=== PATIENT | female | born 1955 | race Caucasian/White ===

== ENCOUNTER 2016-11-28 09:48 | Day surgery (SDC) | payer OTHER ==
[~2016-11-28] VITALS: Ht 172.7 cm; Wt 80.0 kg
[2016-11-28] MEDS ORDERED: HUMALOG (11:09)
[2016-11-28] MEDS ORDERED: ASPIRIN (11:09)
[2016-11-28] MEDS ORDERED: VITAMIN D2 (11:09)
[2016-11-28] MEDS ORDERED: OMEPRAZOLE (11:09)
[2016-11-28 11:11] VITALS: Ht 172.7 cm; Wt 80.0 kg
[2016-11-28 11:26] VITALS: BP 196/94; PULSE 75; RESP 18
[2016-11-28] MEDS ORDERED: PROPOFOL 40 ML ONE (11:44)
[2016-11-28] MEDS ORDERED: LIDOCAINE 2% (SDV) 5 ML INJ ONE (11:44)
[2016-11-28 12:32] VITALS: BP 181/86; PULSE 80; RESP 12
--- NOTE | 2016-11-28 16:08 | GILP ---
DATE OF PROCEDURE: INDICATION: A 61-year-old female undergoing this procedure for dysphagia. She was also told to hav e a colonoscopy, but patient declined it. INFORMED CONSENT: The risk of the procedure, related and unrelated complications, anesthetic risks, alternatives discussed. Informed consent was obtained. DESCRIPTION OF PROCEDURE: Patient was brought to the GI lab, sedated by Dr. Parker. After obtaining sedation, scope was passed with much ease into the esophagus. She had a tortuous esophagus in the p roximal part. At GE junction, there was some resistance was offered to the passage of the scope. Ma naged to pass with much ease into the stomach. Had a chronic gastritis. Duodenum, first and second part, including ampulla, appeared normal. Retroversion no growth was seen. sign was negativ e. Multiple biopsies obtained to rule out H. pylori infection. Then, a 12- to 15-mm balloon was pa ssed through transendoscopically, initially dilated up to 12 mm for half a minute. Balloon was defl ated, no blood was seen. Then, dilated up to 13.5 mm for another half a minute, and at that point, definitely the mucosa appeared stretched out, and there was slight bleeding seen, so decided not to pursue it further. Scope was then removed with good patient tolerance. IMPRESSION: Esophageal stricture at gastroesophageal junction dilated up to 13.5 mm. PLAN: Review histopathology, continue PPIs, and patient may need another dilatation after 1 month u p to 18 mm. Dictated By: AMNA MARTIN/LISA Conf#: [id number] DID#: [id number]
== END 2016-11-28 15:37 | disposition home or self-care (01) ==
LOC: GIL 09:48
PROVIDERS: ATTEND Internal Medicine Gastroenterology
DX: K22.2 Esophageal obstruction (principal); K29.50 Unspecified chronic gastritis without bleeding; B96.89 Other specified bacterial agents as the cause of diseases classified elsewhere; E11.9 Type 2 diabetes mellitus without complications; Z79.4 Long term (current) use of insulin; Z88.1 Allergy status to other antibiotic agents; Z90.49 Acquired absence of other specified parts of digestive tract; Z90.710 Acquired absence of both cervix and uterus; Z98.51 Tubal ligation status
CPT/HCPCS: 43239; 43249; 82962; 88305; 88312; Z7610

== ENCOUNTER 2017-02-26 06:26 | Day surgery (SDC) | payer OTHER ==
[~2017-02-26] VITALS: Ht 172.7 cm; Wt 81.6 kg
[~2017-02-26 06:26] MED LIST: ASPIRIN; HUMALOG; OMEPRAZOLE; VITAMIN D2
[2017-02-26] MEDS ORDERED: LIDOCAINE 2% (SDV) 5 ML INJ ONE (07:36)
[2017-02-26] MEDS ORDERED: PROPOFOL 20 ML ONE (07:36)
[2017-02-26] MEDS ORDERED: MIDAZOLAM 1 MG/ML 2 ML INJ ONE (07:36)
[2017-02-26 07:38] VITALS: Ht 172.7 cm; Wt 81.6 kg
[2017-02-26 09:03] VITALS: BP 187/75; RESP 20
--- NOTE | 2017-02-27 08:18 | GILP ---
DATE OF PROCEDURE: 02/26/2017 PROCEDURE PERFORMED: 1. Esophagogastroduodenoscopy with biopsy. 2. Esophagogastroduodenoscopy with dilatation of the esophagus. SURGEON: Amna Chandra MD INDICATION: A 61-year-old female undergoing this procedure for dysphagia secondary to esophageal st ricture. The risk of the procedure, related and unrelated complications, anesthetic risks, and alte rnatives discussed and informed consent was obtained. DESCRIPTION OF PROCEDURE: The patient was brought to the GI lab, sedated by Dr. Reyes. After optima l sedation, scope was passed with much ease into the esophagus which was grossly within normal limit s. Z-line, was a stricture, probably diameter of 11 mm. Scope was advanced further down into the s tomach which revealed chronic gastritis. Duodenum first and second part was within normal limits. Ampulla was more prominent than the normal. Multiple biopsies obtained from stomach to rule out H. pylori infection. Retroversion done, no growth was seen. Scope was straightened out. Dilators of grading fashion from 12 to 15 appropriately positioned, initially dilated up to 12 mm for 1 minute. The balloon was deflated. No blood was seen. Then, it was dilated up to 13.5 mm for half a minute . A very little amount of blood was seen, so it was decided to stop the dilatation further. Scope was then removed with good patient tolerance. IMPRESSION: 1. Esophageal stricture, probably 11 mm in diameter, successfully dilated up to 13.5 without any ad verse events. 2. Chronic gastritis, H. pylori infection needs to be ruled out. 3. Prominent ampulla. The patient needs ultrasound of the abdomen to rule out bile duct stone or e ndoscopic ultrasound. Dictated By: AMNA MARTIN/NTS Conf#: [id number] DID#: [id number] CC: AMNA CHANDRA MD; ;*EndCC*
== END 2017-02-26 18:00 | disposition home or self-care (01) ==
LOC: GIL 06:26
PROVIDERS: ATTEND Internal Medicine Gastroenterology
DX: K29.50 Unspecified chronic gastritis without bleeding (principal); K22.2 Esophageal obstruction; E11.9 Type 2 diabetes mellitus without complications
CPT/HCPCS: 43239; 43249; 82962; 88305; 88312; J2250; Z7610

== ENCOUNTER 2017-04-13 00:14 | Emergency (ER) | payer OTHER ==
[~2017-04-13] VITALS: Ht 172.7 cm; Wt 80.9 kg
[~2017-04-13 00:14] MED LIST changes: -ASPIRIN
[2017-04-13 00:17] VITALS: Ht 172.7 cm; Wt 80.9 kg
--- NOTE | 2017-04-13 00:26 | ERA ---
ER Documentation Chief Complaint Date/Time DATE: 04/13/17 TIME: 00:25 Chief Complaint c/o high bp HPI The patient is a 61-year-old female, presenting to the ER because of elevated blood pressure intermittently for 1 week. She was noncompliant with her medications until 2 months ago where she restarted on lisinopril 2.5 mg daily. Her blood pressure was not controlled, therefore she has been taking 5 mg daily for the last 7 days. Her blood pressure remained high. She complains of minimal chest discomfort today that began about 3 PM and frontal headache that began about 10 PM today. She denies any chest pain now, denies neck pain, chest pain with exertion of vomiting or diaphoresis, denies abdominal pain, vomiting, dysuria, diarrhea. She does not smoke nor drink Past medical history: Diabetes mellitus, hypertension, chronic gastritis, history of esophageal stricture Past surgical history: Hysterectomy, appendectomy, cholecystectomy, eye surgery , EGD recently in February 26, 2017 for esophageal dilatation ROS All systems reviewed and are negative except as per history of present illness. Medications Home Meds Active Scripts Amlodipine Besylate* (Norvasc*) 5 Mg Tablet, 5 MG PO DAILY, #14 TAB Prov:REYNALDO SMITH MD 04/13/17 Reported Medications Glucosamine Hcl (Glucosamine Hcl) 1,500 Mg Tablet, 1500 MG PO, TAB 04/13/17 Insulin NPH Human Isophane (Humulin N) 100 Unit/1 Ml Vial, 0 SQ AC BREAKFAST DINNER, VIAL 14 UNITS QAM and 12 UNIT QPM 04/13/17 Omeprazole* (Omeprazole*) 20 Mg Capsule.dr, 20 MG PO DAILY, #30 CAP 04/13/17 Insulin Lispro (Humalog) 100 Unit/1 Ml Cartridge, 0 SQ 04/13/17 Discontinued Reported Medications [Vitamin D2] No Conflict Check 11/28/16 [Omeprazole] No Conflict Check 11/28/16 [Humalog] No Conflict Check 11/28/16 Allergies Allergies: Coded Allergies: cephalexin (Unverified Allergy, Severe, HIVES, 04/13/17) tobramycin (Unverified Allergy, Unknown, 04/13/17) PMhx/Soc History of Surgery: Yes (PARTIAL HYSTERECTOMY, TUBAL LIGATION, APPENDECTOMY, CHOLECYSECTOMY, EYE SX) Anesthesia Reaction: No Hx Neurological Disorder: No Hx Respiratory Disorders: No Hx Cardiac Disorders: No Hx Psychiatric Problems: No Hx Miscellaneous Medical Probl: No Hx Alcohol Use: No Hx Substance Use: No Hx Tobacco Use: No Physical Exam Vitals Vital Signs Date Time Temp Pulse Resp B/P Pulse Ox O2 Delivery O2 Flow Rate FiO2 04/13/17 01:54 80 20 164/81 100 Room Air 04/13/17 00:28 86 20 182/145 100 Room Air 04/13/17 00:17 97.8 93 20 242/110 96 Physical Exam Const: No acute distress. Head: Atraumatic. Eyes: Normal Conjunctiva. ENT: Normal External Ears, Nose and Mouth. Neck: Full range of motion. No meningismus. Resp: Clear to auscultation bilaterally. Cardio: Regular rate and rhythm. Abd: Soft, non distended, normal bowel sounds, non tender. Skin: No petechiae or rashes. Back: No midline or flank tenderness. Ext: No cyanosis, or edema. Neur: Awake and alert. No focal deficit Psych: Normal Mood and Affect. Result Diagram: 04/13/17 0046 04/13/17 0046 Results 24 hrs Laboratory Tests Test 04/13/17 00:46 White Blood Count 9.010^3/ul Red Blood Count 4.1710^6/ul Hemoglobin 12.1g/dl Hematocrit 35.9% Mean Corpuscular Volume 86.1fl Mean Corpuscular Hemoglobin 29.0pg Mean Corpuscular Hemoglobin Concent 33.7g/dl Red Cell Distribution Width 13.9% Platelet Count 53068^3/UL Mean Platelet Volume 11.7fl Neutrophils % 52.1% Lymphocytes % 37.5% Monocytes % 8.3% Eosinophils % 1.6% Basophils % 0.3% Nucleated Red Blood Cells % 0.0/100WBC Neutrophils # 4.710^3/ul Lymphocytes # 3.410^3/ul Monocytes # 0.710^3/ul Eosinophils # 0.110^3/ul Basophils # 0.010^3/ul Nucleated Red Blood Cells # 0.010^3/ul Prothrombin Time 12.2Sec Prothrombin Time Ratio 1.0 INR International Normalized Ratio 0.91 Activated Partial Thromboplast Time 29.2Sec Sodium Level 140mmol/L Potassium Level 4.1mmol/L Chloride Level 99mmol/L Carbon Dioxide Level 30mmol/L Anion Gap 15 Blood Urea Nitrogen 22mg/dl Creatinine 0.95mg/dl Glucose Level 305mg/dl Calcium Level 9.5mg/dl Troponin I < 0.012ng/ml Current Medications Medications (Trade) Dose Ordered Sig/Gokul Route PRN Reason Start Time Stop Time Status Last Admin Dose Admin Labetalol HCl (Labetalol) 20 mg ONCE ONCE IV 04/13/17 01:00 04/13/17 01:01 DC 04/13/17 00:45 Acetaminophen (Tylenol Tab) 650 mg ONCE ONCE PO 04/13/17 02:00 04/13/17 02:01 DC 04/13/17 02:04 Procedures/MDM [place] [id number] Radiology Main Line: [phone] DIAGNOSTIC IMAGING REPORT Patient: MAURICIO JAMES : 1955 Age: 61 Sex: F MR #: [id number] DOS: 04/13/17 0035 Ordering MD: REYNALDO SMITH MD Location: E/R Room/Bed: PROCEDURE: CHEST - 1 VIEW CLINICAL INDICATION: 61-year-old female with chest pain and headaches. TECHNIQUE: A single frontal AP upright portable view of the chest was performed. The images were reviewed on a PACS workstation. COMPARISON: None. FINDINGS: The cardiomediastinal silhouette has a normal appearance. There is no evidence for an infiltrate. There is no evidence for congestive heart failure. There is no evidence for pneumothorax. The osseous structures are intact. IMPRESSION: No evidence for active cardiopulmonary disease. .Suman Lawler MD, Date Time Electronically viewed and signed by .Suman Lawler MD, on 04/13/2017 01:26 .M/ CC: REYNALDO SMITH MD [place] [id number] Radiology Main Line: [phone] DIAGNOSTIC IMAGING REPORT Patient: MAURICIO JAMES : 1955 Age: 61 Sex: F MR #: [id number] DOS: 04/13/17 0035 Ordering MD: REYNALDO SMITH MD Location: E/R Room/Bed: PROCEDURE: CT BRAIN WITHOUT CONTRAST CLINICAL INDICATION: 61-year-old female with headaches and hypertension. TECHNIQUE: The study was performed utilizing [employer] 64-slice CT scanner. Direct axial sections were obtained from the foramen magnum to the vertex without the use of intravenous contrast material. Sagittal and coronal reformations were obtained. One or more of the following dose reduction techniques were utilized: automated exposure control, adjustment of the mA and/ or kV according to patient's size or use of iterative reconstruction technique. The images were viewed on a PACS workstation. CTD/vol = 45.0 mGy; Total Exam DLP = 720.2 mGy-cm. COMPARISON: None. FINDINGS: There is mild prominence of the sulci and cisternal spaces consistent with diffuse volume loss. Otherwise, the ventricles have a normal shape and position. There is no evidence for mass effect or midline shift. There are no intracranial areas of abnormal attenuation. There is no evidence for acute intra or extra-axial blood. The bony calvarium is intact. The visualized paranasal sinuses are without abnormal soft tissue. There appears to be an ovoid focus of gas density within the anterior chamber of the globe superior to the lens measuring 8 x 6 x 8 mm. IMPRESSION: 1. Mild diffuse volume loss. 2. Ovoid gas density superior to the left lens region which may be due to implant or surgery. Clinical correlation is necessary. .Suman Lawler MD, Date Time Electronically viewed and signed by .Suman Lawler MD, MD on 04/13/2017 01:25 .M/ CC: REYNALDO SMITH MD EKG: Read by emergency physician Rate/Rhythm: Normal Sinus Rhythm 84 beats/min QRS, ST, T-waves: No ST elevation, no T inversion Impression: Normal EKG MEDICAL MAKING DECISION: The patient is a 61-year-old female, presenting with acute excellent hypertension. She was treated with labetalol 20 mg IV and Tylenol 650 mg p.o. for her headache with good blood pressure response. The differential diagnoses considered include but are not limited to subarachnoid hemorrhage, occult trauma, CVA, meningitis, encephalitis, hypertension, tension, migraine, cluster, narcotic withdrawal, cervical spine disease. Departure Diagnosis: Primary Impression: Accelerated hypertension Condition: Good Comments I discussed the findings with the patient. I advised the patient to follow-up with the primary physician in about 1-2 days, sooner if needed and return if any concern. She was discharged with Norvasc 5 mg daily REYNALDO SMITH MD Apr 13, 2017 00:26
[2017-04-13] MEDS ORDERED: LABETALOL HCL 20MG INJ IV ONE (01:00)
[2017-04-13 01:11] LABS: ADD SCAN DIFF NO
[2017-04-13 01:13] LABS: BASOPHILS % 0.3 % (0.0-2.0); EOSINOPHILS # 0.1 10^3/ul (0.0-0.5); EOSINOPHILS % 1.6 % (0.0-7.0); HEMATOCRIT 35.9 % (37.0-47.0); HEMOGLOBIN 12.1 g/dl (12.0-16.0); LYMPHOCYTES # 3.4 10^3/ul (0.8-2.9); LYMPHOCYTES % 37.5 % (15.0-51.0); MEAN CORPUSCULAR HGB CONC 33.7 g/dl (32.0-37.0); MEAN CORPUSCULAR VOLUME 86.1 fl (82.0-101.0); MEAN PLATELET VOLUME 11.7 fl (7.4-10.4); MONOCYTE # 0.7 10^3/ul (0.3-0.9); MONOCYTES % 8.3 % (0.0-11.0); NEUTROPHIL # 4.7 10^3/ul (1.6-7.5); NEUTROPHILS % 52.1 % (39.0-77.0); PLATELET COUNT 218 10^3/UL (140-415); RED BLOOD COUNT 4.17 10^6/ul (4.20-5.40); RED CELL DISTRIBUTION WIDTH 13.9 % (11.5-14.5)
--- NOTE | 2017-04-13 01:26 | RADRPT ---
PROCEDURE: CT BRAIN WITHOUT CONTRAST CLINICAL INDICATION: 61-year-old female with headaches and hypertension. TECHNIQUE: The study was performed utilizing [employer] VCT 64-slice CT scanner. Direct axial sections were obtained from the foramen magnum to the vertex without the use of intravenous contrast material. Sagittal and coronal reformations were obtained. One or more of the following dose reduc tion techniques were utilized: automated exposure control, adjustment of the mA and/or kV according to patient's size or use of iterative reconstruction technique. The images were viewed on a PACS w orkstation. CTD/vol = 45.0 mGy; Total Exam DLP = 720.2 mGy-cm. COMPARISON: None. FINDINGS: There is mild prominence of the sulci and cisternal spaces consistent with diffuse volume loss. Oth erwise, the ventricles have a normal shape and position. There is no evidence for mass effect or mid line shift. There are no intracranial areas of abnormal attenuation. There is no evidence for acut e intra or extra-axial blood. The bony calvarium is intact. The visualized paranasal sinuses are wit hout abnormal soft tissue. There appears to be an ovoid focus of gas density within the anterior lupe mber of the globe superior to the lens measuring 8 x 6 x 8 mm. IMPRESSION: 1. Mild diffuse volume loss. 2. Ovoid gas density superior to the left lens region which may be due to implant or surgery. Clin ical correlation is necessary. .Suman Lawler MD, Date Time Electronically viewed and signed by .Suman Lawler MD, on 04/13/2017 01:25 .Porfirio/
--- NOTE | 2017-04-13 01:27 | RADRPT ---
PROCEDURE: CHEST - 1 VIEW CLINICAL INDICATION: 61-year-old female with chest pain and headaches. TECHNIQUE: A single frontal AP upright portable view of the chest was performed. The images were reviewed on a PACS workstation. COMPARISON: None. FINDINGS: The cardiomediastinal silhouette has a normal appearance. There is no evidence for an infiltrate. There is no evidence for congestive heart failure. There is no evidence for pneumothorax. The osseou s structures are intact. IMPRESSION: No evidence for active cardiopulmonary disease. .Suman Lawler MD, MD Date Time Electronically viewed and signed by .Suman Lawler MD, on 04/13/2017 01:26 .M/
[2017-04-13 01:28] LABS: INR 0.91; PROTIME 12.2 Sec (12.2-14.2)
[2017-04-13 01:29] LABS: PARTIAL THROMBOPLASTIN TIME 29.2 Sec (25.0-35.0)
[2017-04-13 01:31] LABS: ANION GAP 15 (8-16); BLOOD UREA NITROGEN 22 mg/dl (7-20); CALCIUM 9.5 mg/dl (8.4-10.2); CARBON DIOXIDE 30 mmol/L (21-31); CHLORIDE 99 mmol/L (97-110); CREATININE 0.95 mg/dl (0.44-1.00); GLUCOSE 305 mg/dl (70-220); POTASSIUM 4.1 mmol/L (3.5-5.1); SODIUM 140 mmol/L (135-144)
[2017-04-13 01:52] LABS: TROPONIN-I < 0.012 ng/ml (0.00-0.12)
[2017-04-13] MEDS ORDERED: ACETAMINOPHEN 325 MG TAB PO ONE (02:00)
[2017-04-13] MEDS ORDERED: NPH,100V SQ (02:03)
[2017-04-13] MEDS ORDERED: INSU100C SQ (02:03)
[2017-04-13] MEDS ORDERED: OMEP20CA16 PO (02:03)
[2017-04-13] MEDS ORDERED: GLUC15002 PO (02:09)
[2017-04-13] MEDS ORDERED: AMLO5TAB4 PO (02:34)
[2017-04-13 03:12] VITALS: BP 147/80; PULSE 79; RESP 17
== END 2017-04-13 03:14 | disposition home or self-care (01) ==
LOC: E/R 00:14
DX: I10 Essential (primary) hypertension (principal); E11.9 Type 2 diabetes mellitus without complications; R07.9 Chest pain, unspecified; R51 Headache; Z79.4 Long term (current) use of insulin
CPT/HCPCS: 70450; 71010; 80048; 84484; 85025; 85610; 85730; 93005; 96374; Z7502; Z7610

== ENCOUNTER 2017-07-16 08:23 | Day surgery (SDC) | payer OTHER ==
[~2017-07-16] VITALS: Ht 172.7 cm; Wt 90.5 kg
[~2017-07-16 08:23] MED LIST changes: +AMLO5TAB4 PO; +GLUC15002 PO; -HUMALOG; +INSU100C SQ; +NPH,100V SQ; +OMEP20CA16 PO; -OMEPRAZOLE; -VITAMIN D2
[2017-07-16 10:48] VITALS: Ht 172.7 cm; Wt 90.5 kg
[2017-07-16] MEDS ORDERED: LIDOCAINE 100 MG SYRINGE ONE (10:53)
[2017-07-16] MEDS ORDERED: PROPOFOL 40 ML ONE (10:53)
[2017-07-16] MEDS ORDERED: FENTAnyl 50 MCG/ML VIAL ONE (10:54)
[2017-07-16] MEDS ORDERED: hydrALAzine 20 MG INJ ONE (11:21)
--- NOTE | 2017-07-16 11:24 | OPPN ---
Date/Time of Note Date/Time of Note DATE: 07/16/17 TIME: 11:23 Proc Note GI Procedure Date 07/16/17 Pre-procedure Diagnosis Dysphagia Post-procedure Diagnosis Esophageal stricture dilated up to 15 mm Gastritis Procedure Performed: Endoscopy Surgeon see signature line Rod [facility]anger none Anesthesia Type: MAC Tourniquet Time none EBL none Transfusion required none Biopsy 1: 3 gastric biopsies Grafts/Implants none Tubes/Drains none Complication(s) none Disposition: PACU Indications: other (Dysphagia) Operative\Procedure Findings EGD with biopsy Esophageal dilatation up to 15 mm Esophageal stricture Gastritis Procedure Description See dictated reports AMNA CHANDRA MD Jul 16, 2017 11:24
[2017-07-16 11:50] VITALS: BP 146/74; RESP 14
--- NOTE | 2017-07-17 04:53 | GILP ---
DATE OF PROCEDURE: PROCEDURE: Esophagogastroduodenoscopy with biopsy and dilatation of the esophagus. INDICATION: The patient is a 61-year-old female undergoing this procedure for dysphagia. Last dila tation was up to 13 mm. The purpose is to evaluate the upper GI tract and dilate up to 15 mm, if po ssible. INFORMED CONSENT: The risks of the procedure, related and unrelated complications, anesthetic risks , alternatives discussed. Informed consent was obtained. DESCRIPTION OF PROCEDURE: The patient was brought to the GI lab, sedated by Dr. Odom. After o ptimal sedation, scope was passed with much ease into esophagus, which was grossly within normal [place] its except at the GE junction, where she had ulceration seen and also probably the diameter was arou nd 12 to 13 mm. Managed to pass the scope without any resistance into stomach which revealed chroni c gastritis. Three biopsies obtained to rule out H. pylori infection. Duodenum, first and second p art appeared normal. Major ampulla appeared prominent. Minor ampulla also identified. Scope was r emoved. Retroversion done. No tumor identified. Scope was straightened out. Fifteen mm dilator a ppropriately positioned and dilated up to 30 seconds. After dilatation, some blood was seen, very m inimal, less than 0.5 mL and appeared to dilated, so scope was removed with good patient naga ance. IMPRESSION: 1. Esophageal stricture successfully dilated up to 15 mm. 2. Chronic gastritis. 3. Prominent major ampulla. 4. Normal retroversion. PLAN: Continue PPI. We will review the histopathology. Dictated By: AMNA MARTIN/LISA Conf#: [id number] DID#: [id number]
== END 2017-07-16 17:51 | disposition home or self-care (01) ==
LOC: GIL 08:23
PROVIDERS: ATTEND Internal Medicine Gastroenterology
DX: K22.2 Esophageal obstruction (principal); I10 Essential (primary) hypertension; E11.9 Type 2 diabetes mellitus without complications; R13.10 Dysphagia, unspecified; K29.50 Unspecified chronic gastritis without bleeding
CPT/HCPCS: 43239; 43249; 82962; 88305; 88312; J0360; J2001; J3010; Z7610

== ENCOUNTER 2018-05-01 12:37 | Emergency (ER) | END 2018-05-01 15:04 | disposition home or self-care (01) ==